=== PATIENT | female | born 1980 | race Caucasian/White ===

== ENCOUNTER 2020-12-11 02:47 | Emergency (ER) | payer OTHER, SELFPAY ==
--- NOTE | 2020-12-11 03:25 | EDM.PDOC ---
ED HPI GENERAL MEDICAL PROBLEM - General Chief Complaint: Respiratory Problem Stated Complaint: COVID+ TROUBLE BREATHING Time Seen by Provider: 12/11/20 03:22 Source of Information: Reports: Patient History Limitations: Reports: No Limitations - History of Present Illness INITIAL COMMENTS - FREE TEXT/NARRATIVE: tested pos, was fine but tonight developed sob and chest tightness earlier, got worried, now feeling better. no cough, no F/C, anterior chest Pain Score (Numeric/FACES): 4 - Related Data Allergies Allergy/AdvReac Type Severity Reaction Status Date / Time No Known Allergies Allergy Verified 12/11/20 03:28 Home Meds: Home Meds . [No Known Home Meds] 12/11/20 [History] ED ROS GENERAL - Review of Systems Review Of Systems: Comprehensive ROS is negative, except as noted in HPI. ED EXAM, GENERAL - Physical Exam Exam: See Below Exam Limited By: No Limitations General Appearance: Alert, WD/WN, Anxious, Mild Distress, Other (upset) Ears: Hearing Grossly Normal Throat/Mouth: Normal Voice, No Airway Compromise Head: Atraumatic Neck: Non-Tender, Full Range of Motion Respiratory/Chest: No Respiratory Distress Cardiovascular: Regular Rate, Rhythm GI/Abdominal: Soft, Non-Tender (Female) Exam: Deferred Rectal (Female) Exam: Deferred Back Exam: Full Range of Motion Extremities: Normal Range of Motion Neurological: Alert, Oriented, Normal Cognition, Normal Gait, No Motor/Sensory Deficits Psychiatric: Anxious Skin Exam: Warm, Dry, Normal Color Lymphatic: No Adenopathy Course - Vital Signs Last Recorded V/S: Last Vital Signs Temp 37.4 C 12/11/20 02:54 Pulse 84 12/11/20 02:54 Resp 18 12/11/20 02:54 BP 158/70 H 12/11/20 02:54 Pulse Ox 100 12/11/20 02:54 - Orders/Labs/Meds Labs: Laboratory Tests 12/11/20 12/11/20 12/11/20 Range/Units 03:20 03:20 03:20 WBC 5.4 (5.0-10.0) 10^3/uL RBC 4.53 (4.2-5.4) 10^6/uL Hgb 14.0 (12.0-16.0) g/dL Hct 40.7 (37.0-47.0) % MCV 89.8 (80-100) fL MCH 30.9 (27.0-34.0) pg MCHC 34.4 (33.0-35.0) g/dL Plt Count 296 (150-450) 10^3/uL Neut % (Auto) 43.9 (42.2-75.2) % Lymph % (Auto) 39.7 (20.5-50.1) % [place] % (Auto) 7.3 (2-8) % Eos % (Auto) 8.0 H (1.0-3.0) % Baso % (Auto) 1.1 H (0.0-1.0) % D-Dimer, Quantitative < 100 (0-400) ng/mL Sodium 143 (136-145) mmol/L Potassium 3.5 (3.5-5.1) mmol/L Chloride 105 (98-107) mmol/L Carbon Dioxide 31 (21-32) mmol/L Anion Gap 10.5 (7-13) mEq/L BUN 9 (7-18) mg/dL Creatinine 0.67 (0.55-1.02) mg/dL Est Cr Clr Drug Dosing 87.39 mL/min Estimated GFR (MDRD) > 60 BUN/Creatinine Ratio 13.4 (No establ ref range) Glucose 87 (74-99) mg/dL Calcium 8.7 (8.5-10.1) mg/dL Total Bilirubin 0.3 (0.2-1.0) mg/dL AST 15 (15-37) U/L ALT 23 (14-59) U/L Alkaline Phosphatase 58 (46-116) U/L Troponin I < 0.017 (0.000-0.056) ng/mL Total Protein 7.7 (6.4-8.2) g/dL Albumin 4.0 (3.4-5.0) g/dL Globulin 3.7 Albumin/Globulin Ratio 1.1 - Re-Assessments/Exams Free Text/Narrative Re-Assessment/Exam: 12/11/20 04:19 results discussed with pt who is feeling fine now. Departure - Departure Time of Disposition: 04:19 Disposition: Home, Self-Care 01 Condition: Good Clinical Impression: Reaction, situational Qualifiers: Adjustment disorder type: unspecified type Qualified Code(s): F43.20 - Adjustment disorder, unspecified - Discharge Information Forms: ED Department Discharge Additional Instructions: 1) rest 2) drink lots of liquids 3) follow up at clinic Sepsis Event Note (ED) - Focused Exam Vital Signs: Vital Signs Temp Pulse Resp BP Pulse Ox 12/11/20 02:54 37.4 C 84 18 158/70 H 100
[2020-12-11 03:58] LABS: ANION GAP 10.5 mEq/L (7-13); CHLORIDE,CL 105 mmol/L (98-107); SODIUM,NA 143 mmol/L (136-145)
== END 2020-12-11 04:25 | disposition home or self-care (01) ==
LOC: DL.ED 02:47
DX: F43.20 Adjustment disorder, unspecified (principal)
CPT/HCPCS: 36415; 80053; 84484; 85025; 85379; 99282; 99284

== ENCOUNTER 2020-12-12 15:43 | Emergency (ER) | payer SELFPAY ==
--- NOTE | 2020-12-12 16:24 | EDM.PDOC ---
ED HPI GENERAL MEDICAL PROBLEM - General Chief Complaint: General Stated Complaint: AMBULANCE Time Seen by Provider: 12/12/20 16:00 Source of Information: Reports: Patient, Old Records, RN, RN Notes Reviewed History Limitations: Reports: No Limitations - History of Present Illness INITIAL COMMENTS - FREE TEXT/NARRATIVE: Patient presents to the ED via EMS with complaints of progressive shortness of breath. The patient reports she was diagnosed with COVID four days prior, 12/08/20, following symptoms that began that same day. The patient states she has been attempting to manage her symptoms at home but she has become concerned as she has not improved, yet. In addition to the shortness of breath she attests to shaking chills, headache, fatigue, and nausea. She denies vision changes, chest pain, dyspepsia, vomiting, diarrhea, melena, or hematochezia. She states she has been taking Tylenol 650mg every four hours. She denies tobacco, alcohol, or recreational drug use. She denies recent or chronic illnesses and does not take any prescribed medication daily. - Related Data Allergies Allergy/AdvReac Type Severity Reaction Status Date / Time No Known Allergies Allergy Verified 12/12/20 15:49 Home Meds: Home Meds . [No Known Home Meds] 12/11/20 [History] Past Medical History - Past Health History Medical/Surgical History: Denies Medical/Surgical History Social & Family History - Family History Family Medical History: No Pertinent Family History - Tobacco Use Tobacco Use Status *Q: Never Tobacco User - Recreational Drug Use Recreational Drug Use: No ED ROS GENERAL - Review of Systems Review Of Systems: Comprehensive ROS is negative, except as noted in HPI. ED EXAM, GENERAL - Physical Exam Exam: See Below Exam Limited By: No Limitations General Appearance: Alert, No Apparent Distress Eye Exam: Bilateral Eye: EOMI, Normal Inspection, PERRL (4mm) Ears: Normal External Exam, Normal Canal, Hearing Grossly Normal, Normal TMs Ear Exam: Bilateral Ear: Auricle Normal, Canal Normal, TM Dull Nose: Normal Inspection, Normal Mucosa, No Blood. No: Nasal Tenderness, Nasal Swelling Throat/Mouth: Normal Inspection, Normal Voice, No Airway Compromise. No: Normal Oropharynx (Dry mucous membranes) Head: Atraumatic, Normocephalic Neck: Supple, Non-Tender, Full Range of Motion, Lymphadenopathy (R). No: Lymphadenopathy (L) Respiratory/Chest: No Respiratory Distress, Lungs Clear, Normal Breath Sounds, No Accessory Muscle Use, Chest Non-Tender Cardiovascular: Normal Peripheral Pulses, Regular Rate, Rhythm, No Edema, No Gallop, No JVD, No Murmur, No Rub Peripheral Pulses: 2+: Radial (L), Radial (R) GI/Abdominal: Normal Bowel Sounds, Soft, Non-Tender, No Distention, No Mass, Pelvis Stable (Female) Exam: Deferred Rectal (Female) Exam: Deferred Back Exam: Normal Inspection, Full Range of Motion Extremities: Normal Inspection, Normal Range of Motion, Non-Tender, No Pedal Edema, Normal Capillary Refill Neurological: Alert, Oriented, CN II-XII Intact, Normal Cognition, No Motor/Sensory Deficits Psychiatric: Anxious Skin Exam: Warm, Dry, Intact, Normal Color, No Rash. No: Ecchymosis, Erythema, Jaundice, Mottled, Pallor, Petechiae Course - Vital Signs Last Recorded V/S: Last Vital Signs Temp 97.6 F 12/12/20 15:52 Pulse 65 12/12/20 15:52 Resp 16 12/12/20 15:52 BP 152/83 H 12/12/20 15:52 Pulse Ox 100 12/12/20 15:52 - Orders/Labs/Meds Labs: Laboratory Tests 12/12/20 12/12/20 12/12/20 Range/Units 16:24 16:24 16:24 WBC 6.5 (5.0-10.0) 10^3/uL RBC 4.29 (4.2-5.4) 10^6/uL Hgb 13.2 (12.0-16.0) g/dL Hct 38.3 (37.0-47.0) % MCV 89.3 (80-100) fL MCH 30.8 (27.0-34.0) pg MCHC 34.5 (33.0-35.0) g/dL Plt Count 292 (150-450) 10^3/uL Neut % (Auto) 63.4 (42.2-75.2) % Lymph % (Auto) 27.2 (20.5-50.1) % [place] % (Auto) 6.5 (2-8) % Eos % (Auto) 2.0 (1.0-3.0) % Baso % (Auto) 0.9 (0.0-1.0) % D-Dimer, Quantitative < 100 (0-400) ng/mL Sodium 142 (136-145) mmol/L Potassium 3.2 L (3.5-5.1) mmol/L Chloride 104 (98-107) mmol/L Carbon Dioxide 27 (21-32) mmol/L Anion Gap 14.2 H (7-13) mEq/L BUN 6 L (7-18) mg/dL Creatinine 0.68 (0.55-1.02) mg/dL Est Cr Clr Drug Dosing TNP Estimated GFR (MDRD) > 60 BUN/Creatinine Ratio 8.8 (No establ ref range) Glucose 92 (74-99) mg/dL Calcium 8.8 (8.5-10.1) mg/dL Total Bilirubin 0.6 (0.2-1.0) mg/dL AST 15 (15-37) U/L ALT 23 (14-59) U/L Alkaline Phosphatase 45 L (46-116) U/L Total Protein 7.6 (6.4-8.2) g/dL Albumin 4.0 (3.4-5.0) g/dL Globulin 3.6 Albumin/Globulin Ratio 1.1 Meds: Medications Discontinued Medications Generic Name Dose Route Start Last Admin Trade Name Jimmieq PRN Reason Stop Dose Admin Dexamethasone 6 mg 12/12/20 17:03 12/12/20 17:31 Decadron IM 12/12/20 17:04 6 mg ONETIME ONE Administration - Radiology Interpretation Free Text/Narrative:: [facility] Final Radiology Report Call: [phone] assistance Online chat: [email or web address] Name: DEE CARO Age: 39Years F Date: 12/12/2020 SSN: -- : 1980 Study: CR CHEST 1V FRONTAL Requesting Physician: Maite High Images: 1 Addl Studies: Provided Clinical History: Shortness of breath; COVID + Contrast: Contrast Medium: Contrast Amount: Contrast Method: CONFIDENTIALITY STATEMENT This report is intended only for use by the referring physician, and only in accordance with law. If you received this in error, call [phone]. Page 1 of 1 PROCEDURE INFORMATION: Exam: XR Chest, 1 View Exam date and time: 12/12/2020 4:27 PM Age: 39 years old Clinical indication: Shortness of breath; Additional info: Shortness of breath; Covid + TECHNIQUE: Imaging protocol: XR of the chest Views: 1 view. Total images: 1 COMPARISON: No relevant prior studies available. FINDINGS: Lungs: Unremarkable. No consolidation. Pleural spaces: Unremarkable. No pleural effusion. No pneumothorax. Heart/Mediastinum: Unremarkable. No cardiomegaly. Bones/joints: Unremarkable. IMPRESSION: No acute findings. Thank you for allowing us to participate in the care of your patient. Dictated and Authenticated by: Kit Pal MD 12/12/2020 4:38 PM Central Time ([place] & [place]) - Re-Assessments/Exams Free Text/Narrative Re-Assessment/Exam: 12/12/20 CBC and CMP unremarkable for acute processes. D-Dimer WNL. CXR unremarkable for acute processes. Given patient's continued difficulty with shortness of breath, will treat with Dexamethasone 6mg IM today with prescription Dex 6m PO x6 days. Discussed expected length of viral illness progression with patient, as well as supportive cares. Red flag signs and symptoms which would warrant reevaluation reviewed with patient. She verbalized understanding and agreement with the plan of care. Departure - Departure Time of Disposition: 17:04 Disposition: Home, Self-Care 01 Condition: Good Clinical Impression: COVID-19 virus infection, Hypokalemia, Dyspnea due to COVID-19 - Discharge Information *PRESCRIPTION DRUG MONITORING PROGRAM REVIEWED*: Not Applicable *COPY OF PRESCRIPTION DRUG MONITORING REPORT IN PATIENT GUZMAN: Not Applicable Instructions: COVID-19 Frequently Asked Questions, Hypokalemia, 10 Things You Can Do to Manage Your COVID-19 Symptoms at Home - [facility] Forms: ED Department Discharge Additional Instructions: 1.) Continue to follow State Health Department guidelines regarding quarantine during an active COVID infection. 2.) Eat small, frequent meals to avoid nausea. 3.) Drink sips of water frequently to stay hydrated. Sepsis Event Note (ED) - Evaluation Sepsis Screening Result: No Definite Risk - Focused Exam Vital Signs: Vital Signs Temp Pulse Resp BP Pulse Ox 12/12/20 15:52 97.6 F 65 16 152/83 H 100
--- NOTE | 2020-12-12 16:38 | CR ---
PROCEDURE INFORMATION: Exam: XR Chest, 1 View Exam date and time: 12/12/2020 4:27 PM Age: 39 years old Clinical indication: Shortness of breath; Additional info: Shortness of breath; Covid + TECHNIQUE: Imaging protocol: XR of the chest Views: 1 view. Total images: 1 COMPARISON: No relevant prior studies available. FINDINGS: Lungs: Unremarkable. No consolidation. Pleural spaces: Unremarkable. No pleural effusion. No pneumothorax. Heart/Mediastinum: Unremarkable. No cardiomegaly. Bones/joints: Unremarkable. IMPRESSION: No acute findings.
[2020-12-12 16:52] LABS: ANION GAP 14.2 mEq/L (7-13); CHLORIDE,CL 104 mmol/L (98-107); SODIUM,NA 142 mmol/L (136-145)
[2020-12-12] MEDS ORDERED: Dexamethasone 4 MG/ML SDV IM ONE (17:03)
== END 2020-12-12 17:32 | disposition home or self-care (01) ==
LOC: DL.ED 15:43
DX: U07.1 COVID-19 (principal); E87.6 Hypokalemia
CPT/HCPCS: 36415; 71045; 80053; 85025; 85379; 96374; 99285; J1100

== ENCOUNTER 2021-10-05 17:13 | Emergency (ER) | payer MEDICAID, OTHER ==
[2021-10-05 18:18] LABS: ANION GAP 15.5 mEq/L (7-13); CHLORIDE,CL 98 mmol/L (98-107); SODIUM,NA 133 mmol/L (136-145)
--- NOTE | 2021-10-05 20:56 | EDM.PDOC ---
ED HPI GENERAL MEDICAL PROBLEM - General Chief Complaint: BOOKING MANAGER Problem Stated Complaint: BAD CRAMPS, TOOK DAY AFTER PILL Time Seen by Provider: 10/05/21 19:05 Source of Information: Reports: Patient History Limitations: Reports: No Limitations - History of Present Illness INITIAL COMMENTS - FREE TEXT/NARRATIVE: EED with report of severe cramping and miscarriage. 2 weeks prior, absence of FHT. Returned to clinic 2 days ago given Cytotec, took 3 pills last night and addition l 2 pills today around 11. 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 2 additional episodes of bleeding and passing clots in BR. Cramping improved at present. Still fell wright of bleeding if stands up. - Related Data Allergies Allergy/AdvReac Type Severity Reaction Status Date / Time No Known Allergies Allergy Verified 10/05/21 18:03 Home Meds: Home Meds Multivitamin/Iron/Folic Acid [Centrum Adults Tablet] 1 each PO DAILY 10/05/21 [History] Potassium Gluconate [Potassium] 99 mg PO Q3H 10/05/21 [History] Past Medical History - Past Health History Medical/Surgical History: Denies Medical/Surgical History Neurological History: Reports: Head Trauma - Infectious Disease History Infectious Disease History: Reports: Novel Coronavirus - Past Surgical History HEENT Surgical History: Reports: Other (See Below) Other HEENT Surgeries/Procedures: rhinoplasty Social & Family History - Family History Family Medical History: No Pertinent Family History - Tobacco Use Tobacco Use Status *Q: Never Tobacco User - Recreational Drug Use Recreational Drug Use: No ED ROS GENERAL - Review of Systems Review Of Systems: Comprehensive ROS is negative, except as noted in HPI. ED EXAM - Physical Exam Exam: See Below Exam Limited By: No Limitations General Appearance: Alert, Anxious, Mild Distress Eye Exam: Bilateral Eye: EOMI Ears: Normal External Exam Nose: Normal Inspection Throat/Mouth: Normal Inspection Head: Normocephalic, Other (bruising left eye orbit, greenish discoloration) Neck: Normal Inspection, Full Range of Motion Respiratory/Chest: No Respiratory Distress, Lungs Clear, Normal Breath Sounds Cardiovascular: Normal Peripheral Pulses, Regular Rate, Rhythm GI/Abdominal Exam: Normal Bowel Sounds, Soft (Female) Exam: Normal External Exam, Tissue Present in Cervix/Vagina. No: Uterine Tenderness Back Exam: Normal Inspection Neurological: Alert, Oriented, Normal Cognition Psychiatric: Anxious, Tearful Skin Exam: Warm, Dry, Intact, Normal Color Course - Vital Signs Last Recorded V/S: Last Vital Signs Temp 97.9 F 10/05/21 18:06 Pulse 72 10/05/21 18:06 Resp 18 10/05/21 18:06 BP 132/95 H 10/05/21 18:06 Pulse Ox 99 10/05/21 18:06 - Orders/Labs/Meds Orders: Active Orders 24 hr Category Date Time Status CULTURE URINE [RM] Stat Lab 10/05/21 20:05 Received Labs: Laboratory Tests 10/05/21 10/05/21 10/05/21 Range/Units 17:53 17:53 17:53 WBC 17.1 H (5.0-10.0) 10^3/uL RBC 4.12 L (4.2-5.4) 10^6/uL Hgb 13.0 (12.0-16.0) g/dL Hct 37.4 (37.0-47.0) % MCV 90.8 (80-100) fL MCH 31.6 (27.0-34.0) pg MCHC 34.8 (33.0-35.0) g/dL Plt Count 238 (150-450) 10^3/uL Neut % (Auto) 89.1 H (42.2-75.2) % Lymph % (Auto) 5.8 L (20.5-50.1) % [place] % (Auto) 3.8 (2-8) % Eos % (Auto) 1.1 (1.0-3.0) % Baso % (Auto) 0.2 (0.0-1.0) % Sodium 133 L (136-145) mmol/L Potassium 3.5 (3.5-5.1) mmol/L Chloride 98 (98-107) mmol/L Carbon Dioxide 23 (21-32) mmol/L Anion Gap 15.5 H (7-13) mEq/L BUN 13 (7-18) mg/dL Creatinine 0.94 (0.55-1.02) mg/dL Est Cr Clr Drug Dosing 58.83 mL/min Estimated GFR (MDRD) > 60 BUN/Creatinine Ratio 13.8 (No establ ref range) Glucose 114 H (70-99) mg/dL Calcium 8.0 L (8.5-10.1) mg/dL Total Bilirubin 0.3 (0.2-1.0) mg/dL AST 24 (15-37) U/L ALT 33 (14-59) U/L Alkaline Phosphatase 54 (46-116) U/L Total Protein 7.2 (6.4-8.2) g/dL Albumin 3.5 (3.4-5.0) g/dL Globulin 3.7 Albumin/Globulin Ratio 0.9 Urine Color (YELLOW) Urine Appearance (CLEAR) Urine pH (5.0-9.0) Ur Specific [place] (1.005-1.030) Urine Protein (NEGATIVE) Urine Glucose (UA) (NEGATIVE) Urine Ketones (NEGATIVE) Urine Occult Blood (NEGATIVE) Urine Nitrite (NEGATIVE) Urine Bilirubin (NEGATIVE) Urine Urobilinogen (0.2-1.0) mg/dL Ur Leukocyte Esterase (NEGATIVE) Urine RBC (0-5) /HPF Urine WBC (0-5/HPF) /HPF Ur Epithelial Cells (NOT SEEN) /HPF Urine Bacteria (0-FEW/HPF) /HPF Blood Type (Referred) O pos Rhogam Indicated No Blood Bank Comment [facility] 10/05/21 Range/Units 20:05 WBC (5.0-10.0) 10^3/uL RBC (4.2-5.4) 10^6/uL Hgb (12.0-16.0) g/dL Hct (37.0-47.0) % MCV (80-100) fL MCH (27.0-34.0) pg MCHC (33.0-35.0) g/dL Plt Count (150-450) 10^3/uL Neut % (Auto) (42.2-75.2) % Lymph % (Auto) (20.5-50.1) % [place] % (Auto) (2-8) % Eos % (Auto) (1.0-3.0) % Baso % (Auto) (0.0-1.0) % Sodium (136-145) mmol/L Potassium (3.5-5.1) mmol/L Chloride (98-107) mmol/L Carbon Dioxide (21-32) mmol/L Anion Gap (7-13) mEq/L BUN (7-18) mg/dL Creatinine (0.55-1.02) mg/dL Est Cr Clr Drug Dosing mL/min Estimated GFR (MDRD) BUN/Creatinine Ratio (No establ ref range) Glucose (70-99) mg/dL Calcium (8.5-10.1) mg/dL Total Bilirubin (0.2-1.0) mg/dL AST (15-37) U/L ALT (14-59) U/L Alkaline Phosphatase (46-116) U/L Total Protein (6.4-8.2) g/dL Albumin (3.4-5.0) g/dL Globulin Albumin/Globulin Ratio Urine Color Red (YELLOW) Urine Appearance Slightly cloudy (CLEAR) Urine pH 7.5 (5.0-9.0) Ur Specific [place] 1.010 (1.005-1.030) Urine Protein 100 H (NEGATIVE) Urine Glucose (UA) Negative (NEGATIVE) Urine Ketones Negative (NEGATIVE) Urine Occult Blood Large H (NEGATIVE) Urine Nitrite Negative (NEGATIVE) Urine Bilirubin Negative (NEGATIVE) Urine Urobilinogen 0.2 (0.2-1.0) mg/dL Ur Leukocyte Esterase Small H (NEGATIVE) Urine RBC Semi-packed H (0-5) /HPF Urine WBC 0-5 (0-5/HPF) /HPF Ur Epithelial Cells Moderate H (NOT SEEN) /HPF Urine Bacteria Few (0-FEW/HPF) /HPF Blood Type (Referred) Rhogam Indicated Blood Bank Comment Meds: Medications Discontinued Medications Generic Name Dose Route Start Last Admin Trade Name Freq PRN Reason Stop Dose Admin Doxycycline Monohydrate Confirm 10/05/21 20:57 Doxycycline Monohydrate 100 Mg Cap Administered 10/05/21 20:58 Dose 400 mg .ROUTE .STK-MED ONE - Re-Assessments/Exams Free Text/Narrative Re-Assessment/Exam: 10/06/21 04:[address] hernandez, No US available through Radiology. Dr Hernandez here US and Vag exam, Samall amount clots and tissue removed with forceps. Patient tolerated well. Departure - Departure Time of Disposition: 20:48 Disposition: Home, Self-Care 01 Condition: Good Clinical Impression: Complete - Discharge Information *PRESCRIPTION DRUG MONITORING PROGRAM REVIEWED*: No *COPY OF PRESCRIPTION DRUG MONITORING REPORT IN PATIENT GUZMAN: No Instructions: Miscarriage, [id number] Forms: ED Department Discharge Additional Instructions: Cytotec 100mcg take 3 tablets tonight and 2 tablets night Doxycycline 100mg one twice daily -am and pm follow up severe bleeding greater then one large pad every 20 minutes tylenol 500mg may alternate with ibuprofen 600mg every 4 hours as needed for cramping/ discomfort Recheck clinic 2 weeks Sepsis Event Note (ED) - Evaluation Sepsis Screening Result: No Definite Risk - Focused Exam Vital Signs: Vital Signs Temp Pulse Resp BP Pulse Ox 10/05/21 18:06 97.9 F 72 18 132/95 H 99 - My Orders Last 24 Hours: My Active Orders 10/05/21 20:05 CULTURE URINE [RM] Stat - Assessment/Plan Last 24 Hours: My Active Orders 10/05/21 20:05 CULTURE URINE [RM] Stat
[2021-10-05] MEDS ORDERED: Doxycycline Monohydrate 100 MG Cap ONE (20:57)
--- NOTE | 2021-10-06 00:30 | CONS ---
SERVICE DATE: 10/05/2021 REASON FOR CONSULTATION: Evaluation of bleeding with miscarriage and retained tissue in the cervix. CONSULTING PROVIDER: Kathe Angulo, nurse practitioner. HISTORY OF PRESENT ILLNESS: A 40-year-old, 1, para 0-0-1-0 patient with known missed AB. Had been given a prescription for Cytotec to take 800 mcg per vagina times 1 to 2 doses to help with passage of the tissue. The patient reports she only used 1-1/2 pill, 300 mcg x2 separate doses and started to have some bleeding and cramping tonight while she was at work. Reports the pain was severe enough that she felt like she might pass out and contacted a friend to help get her into the emergency department. Bleeding was bright red and she reports just prior to coming in to the Emergency Department, she stopped in the bathroom because she felt a large gush and pressure-like delivering a baby and looked in the toilet and she did see an apple-sized clot, amniotic sac and fetus. She described the large head of the baby in proportion to its belly as well as what she reported was a tail, most likely umbilical cord seen within the sac. She did flush this tissue, so we did not have it for inspection. She continued to have a couple more episodes of passage of smaller clots and bright red blood. Cramping had improved. ER provider performed a speculum exam and cervix was open with some tissue fragments present, but bleeding had slowed significantly. There was no retail service technician on for evaluation tonight, and I was asked to come in and help evaluate the patient. Past medical, surgical, social and family histories were reviewed when she was in the clinic the other day and not reviewed in detail today. REVIEW OF SYSTEMS: No fevers, chills, foul-smelling drainage, discharge, nausea, vomiting, actual syncope, shortness of breath or chest pain and no pallor. OBJECTIVE: Vital Signs: Temperature is 97.9, pulse 72, blood pressure 132/95, respiratory rate of 18, O2 saturations 99% on room air. Heart: Regular without murmur. Lungs: Clear bilaterally. Abdomen: Soft and nontender. Bedside ultrasound performed myself as retail service technician is not on-call tonight and endometrial stripe seen no wider than 1 cm in greatest diameter. Tissue seen within the cervix. Speculum exam performed. Tissue and clot removed from the open cervix, but I did not get up into the actual uterine cavity and the patient tolerated this well. There was no brisk bleeding or blood noted. Ultrasound was used to look again and endometrial stripe was around the same size; second time measuring about 9 mm, but could be accounted for by being in a different plane. The cervical tissue was seen as being removed. Extremities: No edema, erythema or tenderness. Neurologic: No focal deficits. Psychiatric: Patient is handling things very well. She finds strength in god and understands why these things have taken place and she is just thankful that things are going well given the circumstances. LABORATORY: WBCs 17.1, Hgb 13, Plts 238. Blood type O+. CMP remarkable only for Na 133, Glu 114, Ca 8.0. UA contaminated sample. ASSESSMENT: 1. Completed . 2. Miscarriage in a patient with advanced maternal age. PLAN: The patient still has 5 doses of 200 mcg of Cytotec available. I have instructed her to use 3 of those tablets tonight and another 2 tablets tomorrow night to help ensure complete uterine cramping and evacuation. I have also recommended doxycycline 100 mg p.o. b.i.d. for 7 days to help reduce risk of potential infection due to the instrumentation of the cervix. She can follow up in the clinic if needed for any concerns. Discussed with her that although there was only 1 cm endometrial stripe, she can still expect more blood to accumulate and cause additional clots. Golf ball size clots and flowing blood would not be unexpected. Bleeding at this point, however, is likely to slow down to be more like a menstrual cycle. She can call or return if any problems or concerns arise. Her questions were answered, and ER provider and I discussed the followup plan in detail. MODL /[id number]
== END 2021-10-05 21:17 | disposition home or self-care (01) ==
LOC: DL.ED 17:13
DX: O03.9 Complete or unspecified spontaneous abortion without complication (principal); Z86.16 Personal history of COVID-19
CPT/HCPCS: 36415; 80053; 81001; 85025; 87086; 87088; 87186; 99283